=== PATIENT | male | born 1970 | race Two or more races ===

== ENCOUNTER 2021-02-20 04:20 | Emergency (ER) | payer MEDICAID ==
[~2021-02-20] VITALS: Ht 180.3 cm; Wt 90.7 kg
[2021-02-20 04:22] VITALS: BP 196/122
== END 2021-02-20 09:00 | disposition left against medical advice (07) ==
LOC: ER 04:20
DX: M79.661 Pain in right lower leg (principal); Z53.21 Procedure and treatment not carried out due to patient leaving prior to being seen by health care provider

== ENCOUNTER 2021-08-29 07:02 | Inpatient (IN) | payer MEDICAID ==
[~2021-08-29] VITALS: Ht 177.8 cm; Wt 89.2 kg
[2021-08-29] MEDS ORDERED: CLINDAMYCIN 600MG IV 50 ML IV ONE (07:30)
[2021-08-29] MEDS ORDERED: cloNIDine HCL 0.1 MG TAB PO ONE ×2 (07:30→09:45)
[2021-08-29] MEDS ORDERED: SODIUM CHLORIDE 0.9% 500 ML IV ONE (07:30)
[2021-08-29 09:11] LABS: Basophils # (auto) 0 10 ^3/uL (0-0.2); Basophils % (auto) 0.6 % (0.0-2.0); Eosinophils # (auto) 0.3 10 ^3/uL (0-0.8); Eosinophils % (auto) 4.1 % (0.0-7.0); Hematocrit 39.5 % (41.0-53.0); Hemoglobin 13.3 g/dL (13.5-17.5); Lymphocytes # (auto) 1.3 10 ^3/uL (0.4-5.4); Mean Corpuscular Hemoglobin 29.2 pg (28.0-32.0); Mean Corpuscular Hgb Conc. 33.5 g/dL (32.0-36.0); Mean Corpuscular Volume 87.2 fL (80.0-100.0); Monocytes # (auto) 1.1 10 ^3/uL (0-1.3); Monocytes % (auto) 12.6 % (0.0-12.0); Neutrophils # (auto) 5.8 10 ^3/uL (1.6-8.6); Neutrophils % (auto) 67.7 % (37.0-80.0); Red Blood Cells 4.54 10^6/uL (4.5-5.90); Red Cell Distribution Width 14.4 % (11.8-14.3); White Blood Cell 8.6 10^3/uL (4.4-10.8)
[2021-08-29 09:18] LABS: Albumin 2.9 g/dL (3.4-5.0); Calcium 8.4 mg/dL (8.5-10.1); Potassium 3.7 mmol/L (3.5-5.1)
[2021-08-29 09:22] LABS: BUN/Creatinine Ratio 22.7; Bilirubin, Total 0.6 mg/dL (0.2-1.0); Total Protein 7.9 g/dL (6.4-8.2)
[2021-08-29] MEDS ORDERED: SODIUM CHLORIDE 0.9% 1,000 ML IV ONE (10:00)
[2021-08-29] MEDS ORDERED: TEMAZEPAM 15 MG CAP PO PRN (10:00)
[2021-08-29] MEDS ORDERED: MORPHINE SULFATE INJ 2 MG/ml SYRG IV PRN ×2 (10:00)
[2021-08-29] MEDS ORDERED: ACETAMINOPHEN 325 MG TAB PO PRN (10:00)
[2021-08-29] MEDS ORDERED: NITROGLYCERIN 0.4 MG SL TAB SL PRN (10:00)
[2021-08-29] MEDS ORDERED: HYDROcodone-ACET 5/325MG TAB PO PRN (10:00)
[2021-08-29] MEDS ORDERED: DOCUSATE SOD 100 MG CAP PO PRN (10:00)
[2021-08-29] MEDS: PANTOPRAZOLE 40 MG/10 ML VIAL INJ IV SCH (10:41)
[2021-08-29] MEDS: ZINC SULFATE 220mg CAP or TAB PO SCH (10:41)
[2021-08-29] MEDS: ENOXAPARIN SOD 40 MG/0.4 ML SYRINGE SC SCH (10:41)
[2021-08-29] MEDS: MULTIPLE VITAMIN TAB PO SCH (10:42)
[2021-08-29] MEDS: ASCORBIC ACID 500 MG TAB PO SCH ×2 (10:42→22:23)
[2021-08-29] MEDS: amLODIPine BESYLATE 5 MG TAB PO SCH (10:44)
[2021-08-29] MEDS: LISINOPRIL 20 MG TAB PO SCH (10:44)
[2021-08-29] MEDS: PIPERACILLIN-TAZOB 3.375GM 100 ML IV SCH ×2 (14:08→22:10)
[2021-08-29] MEDS: ONDANSETRON HCL 4 MG/2 ML VIAL IV PRN ×2 (15:30→20:55)
[2021-08-29] MEDS: hydrALAZINE HCL 20 MG/ML VL IV PRN (17:09)
[2021-08-30] MEDS: hydrALAZINE HCL 20 MG/ML VL IV PRN (02:18)
[2021-08-30] MEDS: ONDANSETRON HCL 4 MG/2 ML VIAL IV PRN (03:51)
[2021-08-30 05:26] LABS: Basophils # (auto) 0 10 ^3/uL (0-0.2); Basophils % (auto) 0.3 % (0.0-2.0); Eosinophils # (auto) 0 10 ^3/uL (0-0.8); Eosinophils % (auto) 0.2 % (0.0-7.0); Hematocrit 45.2 % (41.0-53.0); Hemoglobin 15.3 g/dL (13.5-17.5); Lymphocytes % (auto) 7.2 % (10.0-50.0); Mean Corpuscular Hemoglobin 29.1 pg (28.0-32.0); Mean Corpuscular Hgb Conc. 33.8 g/dL (32.0-36.0); Mean Corpuscular Volume 85.9 fL (80.0-100.0); Monocytes % (auto) 7.3 % (0.0-12.0); Neutrophils # (auto) 11.6 10 ^3/uL (1.6-8.6); Nucleated Red Blood Cells % 0.2 %; Red Blood Cells 5.26 10^6/uL (4.5-5.90); Red Cell Distribution Width 14.5 % (11.8-14.3); White Blood Cell 13.6 10^3/uL (4.4-10.8)
[2021-08-30 05:35] LABS: Albumin 3.1 g/dL (3.4-5.0); Calcium 9.1 mg/dL (8.5-10.1); Potassium 3.2 mmol/L (3.5-5.1)
[2021-08-30 05:39] LABS: BUN/Creatinine Ratio 13.3; Bilirubin, Total 0.7 mg/dL (0.2-1.0); Total Protein 8.3 g/dL (6.4-8.2)
[2021-08-30] MEDS: PIPERACILLIN-TAZOB 3.375GM 100 ML IV SCH ×3 (06:34→21:58)
[2021-08-30] MEDS: ASCORBIC ACID 500 MG TAB PO SCH ×2 (09:40→21:58)
[2021-08-30] MEDS: MULTIPLE VITAMIN TAB PO SCH (09:40)
[2021-08-30] MEDS: LISINOPRIL 20 MG TAB PO SCH (09:40)
[2021-08-30] MEDS: amLODIPine BESYLATE 5 MG TAB PO SCH (09:41)
[2021-08-30] MEDS: PANTOPRAZOLE 40 MG/10 ML VIAL INJ IV SCH (09:42)
[2021-08-30] MEDS: ZINC SULFATE 220mg CAP or TAB PO SCH (09:50)
[2021-08-30] MEDS: ENOXAPARIN SOD 40 MG/0.4 ML SYRINGE SC SCH (09:50)
[2021-08-30 10:29] VITALS: BP 182/89
[2021-08-30 13:00] VITALS: BP 185/94
[2021-08-30] MEDS ORDERED: VANCOMYCIN PER PHARMACY 0 MG IV SCH (15:15)
[2021-08-30 17:00] VITALS: BP 156/79
[2021-08-30] MEDS: VANCOMYCIN 1GM/250ML 250 ML IV SCH (18:49)
[2021-08-30 22:00] VITALS: BP 167/82
[2021-08-31] MEDS ORDERED: AMLO-489 PO (02:39)
[2021-08-31] MEDS ORDERED: LISI-716 PO (02:39)
[2021-08-31 05:00] VITALS: BP 188/95
[2021-08-31] MEDS: VANCOMYCIN 1GM/250ML 250 ML IV SCH (05:22)
[2021-08-31] MEDS: PIPERACILLIN-TAZOB 3.375GM 100 ML IV SCH (06:46)
[2021-08-31 09:00] VITALS: BP 149/85
[2021-08-31 10:28] LABS: Alcohol, Urine < 3.0 mg/dL (0-10); Amphetamine Screen, Urine NEGATIVE (NEGATIVE); Barbiturate Scree,Urine NEGATIVE (NEGATIVE); Benzodiazephine Screen, Urine NEGATIVE (NEGATIVE); Cannabinoid Screen, Urine NEGATIVE (NEGATIVE); Cocaine Screen, Urine NEGATIVE (NEGATIVE); Opiate Scree,Urine NEGATIVE (NEGATIVE); Phencyclidine Screen, Urine NEGATIVE (NEGATIVE)
[2021-08-31] MEDS: MULTIPLE VITAMIN TAB PO SCH (10:45)
[2021-08-31] MEDS: ASCORBIC ACID 500 MG TAB PO SCH (10:45)
[2021-08-31] MEDS: ZINC SULFATE 220mg CAP or TAB PO SCH (10:45)
[2021-08-31] MEDS: PANTOPRAZOLE 40 MG/10 ML VIAL INJ IV SCH (10:48)
[2021-08-31] MEDS: LISINOPRIL 20 MG TAB PO SCH (10:48)
[2021-08-31] MEDS: amLODIPine BESYLATE 5 MG TAB PO SCH (10:48)
[2021-08-31] MEDS: ENOXAPARIN SOD 40 MG/0.4 ML SYRINGE SC SCH (10:49)
[2021-08-31] MEDS ORDERED: clonazePAM 0.5 MG TAB PO SCH (12:15)
[2021-08-31] MEDS ORDERED: hydrOXYzine 25 MG TAB or CAP PO PRN (12:15)
== END 2021-08-31 12:13 | disposition left against medical advice (07) | DRG 383 ==
LOC: ER 07:02 → TELE 09:59 → TELE-CENTR 08-30 10:23
PROVIDERS: ADMIT Nurse Practitioner; ATTEND Nurse Practitioner
DX: L03.115 Cellulitis of right lower limb (principal); E78.5 Hyperlipidemia, unspecified; F15.10 Other stimulant abuse, uncomplicated; I16.0 Hypertensive urgency; Z20.822 Contact with and (suspected) exposure to COVID-19; F17.210 Nicotine dependence, cigarettes, uncomplicated; Z53.29 Procedure and treatment not carried out because of patient's decision for other reasons; Z83.3 Family history of diabetes mellitus
CPT/HCPCS: 36415; 73700; 80053; 80061; 80307; 82565; 83036; 83880; 85025; 85652; 93005; 93926; 96361; 96365; C9113; G0378; J2405; J2543; J3490

== ENCOUNTER 2022-11-28 16:18 | Emergency (ER) | payer MEDICAID ==
[~2022-11-28] VITALS: Ht 177.8 cm; Wt 95.4 kg
[~2022-11-28 16:18] MED LIST: AMLO1TAB22 PO; LISI10TA34 PO
[2022-11-28] MEDS ORDERED: cloNIDine HCL 0.1 MG TAB PO ONE (16:30)
[2022-11-28 17:00] LABS: Basophils # (auto) 0.1 10 ^3/uL (0-0.2); Basophils % (auto) 1.1 % (0.0-2.0); Eosinophils # (auto) 0.6 10 ^3/uL (0-0.8); Hematocrit 42.3 % (41.0-53.0); Hemoglobin 14.4 g/dL (13.5-17.5); Lymphocytes # (auto) 1.9 10 ^3/uL (0.4-5.4); Lymphocytes % (auto) 25.9 % (10.0-50.0); Mean Corpuscular Hemoglobin 30.7 pg (28.0-32.0); Mean Corpuscular Volume 90.4 fL (80.0-100.0); Monocytes # (auto) 0.9 10 ^3/uL (0-1.3); Monocytes % (auto) 11.7 % (0.0-12.0); Neutrophils # (auto) 3.9 10 ^3/uL (1.6-8.6); Neutrophils % (auto) 53.3 % (37.0-80.0); Nucleated Red Blood Cells % 0.4 %; Red Blood Cells 4.68 10^6/uL (4.5-5.90); Red Cell Distribution Width 14.5 % (11.8-14.3); White Blood Cell 7.3 10^3/uL (4.4-10.8)
[2022-11-28 17:20] LABS: Alanine Aminotransferase 33 U/L (7-40); Albumin 3.6 g/dL (3.2-4.8); Alkaline Phosphatase 132 U/L (46-116); Anion Gap 4 (5-15); Aspartate Aminotransferase 37 U/L (13-40); Blood Urea Nitrogen 25 mg/dL (9-23); Calcium 9.1 mg/dL (8.5-10.1); Carbon Dioxide 35 mmol/L (20-30); Chloride 98 mmol/L (98-107); Glucose 88 mg/dL (74-106); Potassium 3.9 mmol/L (3.5-5.1); Sodium 137 mmol/L (136-145)
[2022-11-28 17:21] LABS: Bilirubin, Total 0.5 mg/dL (0.2-1.0); Total Protein 6.8 g/dL (5.7-8.2)
[2022-11-28 18:52] VITALS: TEMP 97.7
[2022-11-28] MEDS ORDERED: AMLO1TAB23 PO (19:14)
[2022-11-28] MEDS ORDERED: LISI20TA56 PO (19:14)
[2022-11-28 19:20] VITALS: BP 197/109; PULSE 62; RESP 18; O2SAT 97
== END 2022-11-28 19:30 | disposition home or self-care (01) ==
LOC: ER 16:18
DX: I16.0 Hypertensive urgency (principal); F17.210 Nicotine dependence, cigarettes, uncomplicated; F15.90 Other stimulant use, unspecified, uncomplicated; Z79.899 Other long term (current) drug therapy
CPT/HCPCS: 36415; 80053; 84484; 85025; 93005